=== PATIENT | female | born 1945 | race African-American/Black ===

== ENCOUNTER 2017-02-18 08:45 | Outpatient (RCR) | payer MEDICARE ==
[~2017-02-18 08:45] MED LIST: ACTOS30 MG PO; AMARYL 2MG T2 MG/TAB PO; BENAZEPRIL20 MG PO; FISH OIL 1000MG1 CAP PO; GLUCOPHAGE1000 MG PO; LEVOTHYROXINE0.1 MG PO; LIPITOR 10MG10 MG PO; ZOLOFT 100MG100 MG PO
== END 2017-04-12 ==
LOC: MKS.ESL.PT
DX: S76.811A Strain of other specified muscles, fascia and tendons at thigh level, right thigh, initial encounter (principal); M54.5 Low back pain

== ENCOUNTER → 2018-12-06 | Outpatient (CLI) | payer MEDICARE | LOC: MC.RAD 12:57 | DX: Z12.31 Encounter for screening mammogram for malignant neoplasm of breast (principal) ==

== ENCOUNTER 2020-09-21 10:22 | Day surgery (SDC) | payer MEDICARE ==
[~2020-09-21] VITALS: Ht 182.9 cm; Wt 86.1 kg
[2020-09-21 11:31] VITALS: BP 115/54; PULSE 62; TEMP 96.7
[2020-09-21] MEDS ORDERED: JARDIANCE10 PO (11:41)
[2020-09-21] MEDS ORDERED: LOTENSIN20 MG PO (11:42)
[2020-09-21] MEDS ORDERED: RESTORIL 1515 MG/CAP PO (11:42)
[2020-09-21] MEDS ORDERED: MOBIC15 MG PO (11:42)
[2020-09-21] MEDS ORDERED: MELATONIN5 M1 PO (11:43)
[2020-09-21 12:20] VITALS: BP 123/65; PULSE 62; TEMP 96.5
[2020-09-21 12:30] VITALS: BP 136/67; PULSE 61
[2020-09-21 12:45] VITALS: BP 137/100; PULSE 63
--- NOTE | 2020-09-21 13:07 | NUR ---
1220 Pt returns from endo procedure. Pt ambulates from cart to recliner with RN assist. Pt alert and oriented. Monitors on and alarms set. Call light within reach. Report received from STEPHIE Torres. Pt denies pain and nausea. Pt requests juice and muffin. 1230 Pt taking food and drink well. No complaints voiced. 1300 Discharge instructions given to pt and . All questions answered to their satisfaction. Handed to pt are a thank you card and discharge information. 1307 Pt transferred out of hospital via wheelchair and STEPHIE Price assist, to private vehicle driven by .
== END 2020-09-21 13:10 | disposition home or self-care (01) ==
LOC: SDCO 10:22
DX: Z12.11 Encounter for screening for malignant neoplasm of colon (principal); K57.30 Diverticulosis of large intestine without perforation or abscess without bleeding; E11.9 Type 2 diabetes mellitus without complications; E07.9 Disorder of thyroid, unspecified; M54.5 Low back pain; I10 Essential (primary) hypertension; F17.210 Nicotine dependence, cigarettes, uncomplicated; Z20.822 Contact with and (suspected) exposure to COVID-19; Z86.010 Personal history of colon polyps
CPT/HCPCS: J2704; J7030

== ENCOUNTER → 2020-11-23 | Outpatient (CLI) | payer MEDICARE ==
[~2020-11-23] MED LIST changes: +JARDIANCE10 PO; +LOTENSIN20 MG PO; +MELATONIN5 M1 PO; +MOBIC15 MG PO; +RESTORIL 1515 MG/CAP PO
== END ==
LOC: MC.RAD 09:45
DX: Z12.31 Encounter for screening mammogram for malignant neoplasm of breast (principal)

== ENCOUNTER 2021-01-30 15:30 | Observation (INO) | payer MEDICARE ==
[~2021-01-30] VITALS: Ht 182.9 cm; Wt 81.7 kg
[2021-01-30 16:06] LABS: BASO % 0.6 % (0.0-2.0); EOS # 0.2 K/mm3 (0.0-0.7); EOS % 3.2 % (0.0-4.0); GRAN # 2.8 K/mm3 (1.4-6.5); GRAN % 44.4 % (42.2-75.2); HEMATOCRIT 37.6 % (37.0-47.0); HEMOGLOBIN 11.5 g/dl (12.5-16.0); LYMPH # 2.7 K/mm3 (1.2-3.4); LYMPH % 42.4 % (20.0-51.0); MEAN CELL VOLUME 77 fl (80.0-100.0); MEAN CORPUSCULAR HEMOGLOBIN 24 pg (27-31); MEAN CORPUSCULAR HGB CONC 31 g/dl (33.0-37.0); MEAN PLATELET VOLUME 11.2 fl (7.4-10.4); MONO # 0.6 K/mm3 (0.1-0.6); MONO % 9.2 % (1.7-9.3); PLATELET COUNT 165 K/mm3 (130-400); RED BLOOD COUNT 4.89 M/mm3 (4.10-5.30); REDCELL DISTRIBUTION WIDTH-CV 17.3 % (11.5-14.5)
[2021-01-30 16:16] LABS: PROTHROMBIN TIME 10.8 SECONDS (9.7-12.8)
[2021-01-30 16:20] LABS: BILIRUBIN,TOTAL 0.4 mg/dL (0.2-1.2); CALCIUM 9.4 mg/dL (8.4-10.2); CREATININE, serum 1.07 mg/dL (0.57-1.11); POTASSIUM 4.5 mmol/L (3.5-4.5); TOTAL PROTEIN 7.5 gm/dL (6.2-8.1)
[2021-01-30 17:12] LABS: COLLECTION METHOD IN
[2021-01-30 17:18] LABS: MUCOUS Present (NOT PRESENT); PH 5 (5-8); SQUAMOUS EPITHELIAL 0-2 /hpf (0-10); URINE APPEARANCE Clear (CLEAR/HAZY); URINE BACTERIA None Seen /hpf (NONE SEEN); URINE BILIRUBIN Negative (NEGATIVE); URINE BLOOD 1+ (NEGATIVE); URINE COLOR Yellow (YELLOW); URINE GLUCOSE 3+ (NEGATIVE); URINE KETONE Negative (NEGATIVE); URINE LEUKOCYTE ESTERASE Negative (NEGATIVE); URINE NITRATE Negative (NEGATIVE); URINE PROTEIN(semi-quant) Negative (NEGATIVE); URINE RBC 0-2 /hpf (0-2); URINE UROBILINOGEN Negative (NEGATIVE)
[2021-01-30 17:22] LABS: ALBUMIN 4.2 gm/dL (3.4-4.8)
--- NOTE | 2021-01-30 21:48 | NUR ---
PT ARRIVES TO MEDICAL FLOOR AT ABOUT 2030 VIA WHEELCHAIR TO ROOM 353. PT A/OX4, RIGHT SIDE WEAKNESS TO RIGHT ARM AND RLE NOTED. PT HAS WEAK GAIT. LIMBS ARE FUNCTIONAL AND LEFT SIDE HAS NORMAL STRENGTH. TEASELER WNL. NO FACIAL ASSYMETRY NOTED. VSS. 02 ROOM AIR. PT DENIES N,V,D, PAIN, PARETHESIA. ASSESMENT COMPLETE. MED REC COMPLETE. PT ORIENTED TO ROOM/FLOOR AND HOSPITAL POLICY. DAUGHTER JOAN AND PT UPDATED ON POC. VERBALIZES UNDERSTANDING. PT INSTRUCTED TO USE CALL LIGHT TO AMBULATE. PT CONFIRMS. ALL NEEDS MET AT THIS TIME. CALL LIGHT WITHIN REACH. PT IN YELLOW GOWN AND SLIPPERS.
[2021-01-30 23:32] VITALS: BP 101/88; PULSE 71; TEMP 98.8
[2021-01-31 03:25] VITALS: BP 123/51; PULSE 64; TEMP 97.4
--- NOTE | 2021-01-31 05:12 | NUR ---
PT REGAINING MOBILITY AND STENGTH. UNSTEADY GAIT REMAINS. N/S INFUSING AT 125CC/HR TO RAC. I&O NOTED AND RECORDED. TELE MONITOR ON. ALL NEEDS MET THIS NIGHT. CALL LIGHT WITHIN REACH.
[2021-01-31 07:52] VITALS: BP 118/65; PULSE 69; TEMP 97.9
--- NOTE | 2021-01-31 08:26 | NUR ---
Patient laying in bed upon entering the room. Shift and neuro assessment completed. Breakfast was ordered for the patient. Patient does not have any complaints or concerns at this time. Call light is w/in reach.
[2021-01-31 12:23] VITALS: BP 146/60; PULSE 62; TEMP 98.3
--- NOTE | 2021-01-31 12:48 | NUR ---
Initial visit; Patient thanked Director Human Services for looking in on her and keeping her in Director Human Services's prayers. Patient was using the telephone.
--- NOTE | 2021-01-31 13:47 | NUR ---
SW met with patient to discuss discharge plan. Patient reports that she lives at home alone in [place]. Prior to this admission, the patient reports to being fully independent with her activities of daily living and does not utilize any DME to assist with mobility. Patient reports to having a cane that her brother "made" her that she is planning to use at home. Patient reports to having no oxygen needs at home. Patient believes that she has a DPOA-HC on file with her PCP. Patient does have 1 child named Dorys ([phone]). Spoke at length about making a referral to [facility] for intense rehab vs going home with HH. Patient feels like going to [facility] would help her more in the long run and would like to go there if her insurance approves it. Referral made to Mayra in [facility]. Discharge plan: [facility] reviewing.
[2021-01-31 15:47] VITALS: BP 143/59; PULSE 67; TEMP 97.9
--- NOTE | 2021-01-31 15:57 | NUR ---
[facility] accepts and can take the patient on Thursday 02/01.
[2021-01-31] MEDS ORDERED: LIPITOR 40MG TA40 MG PO (16:22)
[2021-01-31] MEDS ORDERED: ASPIRIN 81M81 MG/TA2 PO (16:22)
--- NOTE | 2021-01-31 17:48 | NUR ---
Patient has done well today, was hoping to discharge, but plan is to discharge tomorrow. Patient showered by OT and did well.
[2021-01-31 20:32] VITALS: BP 143/71; PULSE 70; TEMP 98
[2021-01-31 23:49] VITALS: BP 119/52; PULSE 60; TEMP 98
[2021-02-01 04:26] VITALS: BP 124/58; PULSE 65; TEMP 98.3
--- NOTE | 2021-02-01 05:41 | NUR ---
PT HAD UNEVENTFUL NIGHT THIS SHIFT, PT SSI UPDATED AND GLUCOSE CHECK UPDATED TO [facility]. NO CLINICAL CHANGES OVER NIGHT. R SIDED WEAKNESS REMAINS, PT HAS NOT YET GAINED FULL MOBILITY. ALL NEESD MET. CALL LIGHT WITHIN REACH.
[2021-02-01 08:41] VITALS: BP 105/61; PULSE 62; TEMP 98.2
--- NOTE | 2021-02-01 09:52 | NUR ---
Assessment completed, alert/oriented, vital signs stable, denies pain or discomfort, right arm weakness improved and patient has good strenthg and ROM , no new or worsening neuro deficits noted, heart RRR, distal pulses are palapble, lungs CTA/ no resp.difficulty noted, she is sitting up eating brekfast, meds given, plans for D/C to [facility] today
--- NOTE | 2021-02-01 11:48 | NUR ---
Patient is discharging and going to inpatient rehab, I ahchrissy called reprot to recieving nurse STEPHIE Tuttle, I transferred patient to room 340 via wheelchair
[2021-02-01] MEDS ORDERED: PLAVIX 75MG TAB75 MG PO (13:41)
== END 2021-02-01 12:00 ==
LOC: COL.ER 15:30 → MEDICAL 17:25
PROVIDERS: Student in an Organized Health Care Education/Training Program; ADMIT Internal Medicine
DX: I63.9 Cerebral infarction, unspecified (principal); I25.10 Atherosclerotic heart disease of native coronary artery without angina pectoris; E78.5 Hyperlipidemia, unspecified; I10 Essential (primary) hypertension; E11.9 Type 2 diabetes mellitus without complications; Z87.891 Personal history of nicotine dependence; Z86.718 Personal history of other venous thrombosis and embolism
CPT/HCPCS: 99232-AI; A9585; G0378; J1815; J7030; Q9967

== ENCOUNTER 2021-02-01 08:27 | Inpatient (IN) | payer MEDICARE ==
[~2021-02-01] VITALS: Ht 182.9 cm; Wt 80.5 kg
[~2021-02-01 08:27] MED LIST changes: +ASPIRIN 81M81 MG/TA2 PO; +LIPITOR 40MG TA40 MG PO
--- NOTE | 2021-02-01 12:46 | NUR ---
PT ARRIVED TO ROOM 340 VIA WHEELCHAIR ACCOMPANIED BY NEHEMIAS COLÓN. PT A&O, TRANSFERRED TO BED WITH MINIMAL EFFORT. SHAMIR EQUAL OPPORTUNITY SPECIALIST EQUAL. SPEECH CLEAR. PT WANTING A SHOWER UPON ARRIVAL, OT NOTIFIED.
[2021-02-01] MEDS ORDERED: PLAVIX 75MG TAB75 MG PO (13:41)
[2021-02-01 16:49] VITALS: BP 129/65; PULSE 68; TEMP 98.1
[2021-02-01 17:51] VITALS: BP 129/65; PULSE 68; TEMP 98.1
--- NOTE | 2021-02-01 19:15 | NUR ---
RECEIVED CHANGE OF SHIFT REPORT FROM DAY SHIFT RN.
--- NOTE | 2021-02-01 19:44 | NUR ---
DENIES CHEST PAIN/SOA AT THIS TIME. REPORTS SOME TINGLING TO TIPS OF RIGHT HAND INDEX/THUMB FINGERS. SPEECH CLEAR WITH NO FACIAL DROOPING. BUE MOVEMENT EQUAL WITH EQUAL MOVEMENT OF BLE REPORTED BY PATIENT. REPORTS STILL HAS SOME DIFFICULTY WITH WORD FINDING IN CONVERSATION WITH NURSING STAFF.
[2021-02-02 03:18] VITALS: BP 118/63; PULSE 90; TEMP 98.2
--- NOTE | 2021-02-02 06:51 | NUR ---
CHANGE OF SHIFT REPORT GIVEN TO DAY SHIFT RNELDON
--- NOTE | 2021-02-02 08:44 | NUR ---
Assessment completed, alert/oriented, vital signs stable, denies pain or discomfort, heart RRR/distal pulses are palapble, lungs CTA/no resp.difficulty, blood sugars are controlled, right sided weakness minimal / does have some unsteady gait at times, no new or worsenting neuro deficits noted, she has taken her morning medications, she is sitting up eating breakfast at this time
[2021-02-02 13:21] VITALS: BP 125/58; PULSE 60; TEMP 97.8
--- NOTE | 2021-02-02 19:02 | NUR ---
RECEIVED CHANGE OF SHIFT REPORT FROM DAY SHIFT RN.
--- NOTE | 2021-02-03 02:18 | NUR ---
PATIENT SLEEPING, DOES NOT WAKE WHEN NURSING ENTER ROOM ON ROUNDS. BED ALARM ON WITH CALL LIGHT WITHIN REACH.
[2021-02-03 04:58] VITALS: BP 130/60; PULSE 64; TEMP 97.8
--- NOTE | 2021-02-03 07:06 | NUR ---
CHANGE OF SHIFT REPORT GIVEN TO DAY SHIFT KATIE CARD.
[2021-02-03 07:07] LABS: BASO % 0.7 % (0.0-2.0); EOS # 0.3 K/mm3 (0.0-0.7); EOS % 5.6 % (0.0-4.0); GRAN % 34.4 % (42.2-75.2); LYMPH # 2.8 K/mm3 (1.2-3.4); LYMPH % 48.4 % (20.0-51.0); MEAN CELL VOLUME 78 fl (80.0-100.0); MEAN CORPUSCULAR HEMOGLOBIN 24 pg (27-31); MEAN CORPUSCULAR HGB CONC 31 g/dl (33.0-37.0); MEAN PLATELET VOLUME 11.3 fl (7.4-10.4); MONO # 0.6 K/mm3 (0.1-0.6); MONO % 10.6 % (1.7-9.3); PLATELET COUNT 168 K/mm3 (130-400); RED BLOOD COUNT 4.52 M/mm3 (4.10-5.30); REDCELL DISTRIBUTION WIDTH-CV 18.2 % (11.5-14.5)
[2021-02-03 07:22] LABS: ALBUMIN 3.5 gm/dL (3.4-4.8); CALCIUM 9.2 mg/dL (8.4-10.2); CREATININE, serum 0.91 mg/dL (0.57-1.11); MAGNESIUM 1.6 mg/dL (1.6-2.6); PHOSPHOROUS 3.9 mg/dL (2.3-4.7); POTASSIUM 4.2 mmol/L (3.5-4.5)
[2021-02-03 07:23] LABS: HEMATOCRIT 35.4 % (37.0-47.0)
--- NOTE | 2021-02-03 10:15 | NUR ---
Patient working with therapy. She had her eggs for breakfast. denies pain. Will monitor.
--- NOTE | 2021-02-03 12:50 | NUR ---
Patient stand by assist to the bathroom. Tolerated lunch. minimal needs. Will monitor.
--- NOTE | 2021-02-03 15:10 | NUR ---
Patient sister at bedside. Patient stand by assist to the bathroom. No other needs at this time.
--- NOTE | 2021-02-03 17:07 | NUR ---
Patient facetiming daughter. crackers & peanut butter provided per request. No other needs at this time
[2021-02-03 17:31] VITALS: BP 142/63; PULSE 60; TEMP 97.5
--- NOTE | 2021-02-03 19:15 | NUR ---
Report to Sheila. Patient finish dinner.
--- NOTE | 2021-02-03 20:22 | NUR ---
PT RESTING IN BED. A&OX4. MILD EXPRESSIVE APHASIA NOTED. RT SIDED WEAKNESS. PT RELATES FEEL SHE IS MUCH BEETER AND STRONGER THAN EVEN YESTERDAY.
[2021-02-04 05:01] VITALS: BP 102/78; PULSE 67; TEMP 97.9
[2021-02-04 06:38] LABS: BASO % 0.7 % (0.0-2.0); EOS # 0.3 K/mm3 (0.0-0.7); EOS % 5.4 % (0.0-4.0); GRAN # 2.3 K/mm3 (1.4-6.5); GRAN % 38.1 % (42.2-75.2); HEMOGLOBIN 11.2 g/dl (12.5-16.0); LYMPH # 2.7 K/mm3 (1.2-3.4); LYMPH % 45.6 % (20.0-51.0); MEAN CORPUSCULAR HEMOGLOBIN 28 pg (27-31); MEAN CORPUSCULAR HGB CONC 33 g/dl (33.0-37.0); MEAN PLATELET VOLUME 11.4 fl (7.4-10.4); MONO # 0.6 K/mm3 (0.1-0.6); PLATELET COUNT 161 K/mm3 (130-400); RED BLOOD COUNT 4.08 M/mm3 (4.10-5.30); REDCELL DISTRIBUTION WIDTH-CV 20.8 % (11.5-14.5)
--- NOTE | 2021-02-04 06:46 | NUR ---
shift report received from STEPHIE Sosa
[2021-02-04 06:54] LABS: HEMATOCRIT 33.9 % (37.0-47.0); MEAN CELL VOLUME 83 fl (80.0-100.0)
[2021-02-04 07:07] LABS: ALBUMIN 3.7 gm/dL (3.4-4.8); CALCIUM 9.2 mg/dL (8.4-10.2); CREATININE, serum 0.94 mg/dL (0.57-1.11); MAGNESIUM 1.6 mg/dL (1.6-2.6); PHOSPHOROUS 3.8 mg/dL (2.3-4.7); POTASSIUM 4.4 mmol/L (3.5-4.5)
--- NOTE | 2021-02-04 07:20 | NUR ---
awakened and assisted with sitting up in bed for breakfast
--- NOTE | 2021-02-04 08:39 | NUR ---
occupational therapy in and working with patient
--- NOTE | 2021-02-04 09:59 | NUR ---
resting in bed, full assessment completed, see interventions for further info
--- NOTE | 2021-02-04 10:29 | NUR ---
speech therapy working with patient
--- NOTE | 2021-02-04 13:10 | NUR ---
bedside shift report given to STEPHIE Romero
[2021-02-04 18:00] VITALS: BP 139/66; PULSE 64; TEMP 97.6
--- NOTE | 2021-02-04 20:48 | NUR ---
PT UP TO BR. HAD ANOTHER LOOSE STOOL. PT FEELS ITS FROM GLUCERNA. REFUSES GLUCERNA TONIGHT. PT SL FORGETFUL AND HAS MILD EXPRESSIVE APHASIA. RT SIDED WEAKNESS NOTED. NEEDS STEADYING AT TIMES. CALL LLIGHT IN REACH. BED ALARM SET.
[2021-02-05 05:31] VITALS: BP 132/50; PULSE 68; TEMP 97.2
--- NOTE | 2021-02-05 06:56 | NUR ---
bedside shift report received from STEPHIE Sosa
[2021-02-05 07:35] LABS: BASO % 0.5 % (0.0-2.0); EOS # 0.3 K/mm3 (0.0-0.7); EOS % 6.2 % (0.0-4.0); GRAN # 2.1 K/mm3 (1.4-6.5); GRAN % 37.6 % (42.2-75.2); HEMATOCRIT 36.6 % (37.0-47.0); HEMOGLOBIN 11.3 g/dl (12.5-16.0); LYMPH # 2.4 K/mm3 (1.2-3.4); LYMPH % 43.5 % (20.0-51.0); MEAN CELL VOLUME 76 fl (80.0-100.0); MEAN CORPUSCULAR HEMOGLOBIN 23 pg (27-31); MEAN CORPUSCULAR HGB CONC 31 g/dl (33.0-37.0); MEAN PLATELET VOLUME 11.6 fl (7.4-10.4); MONO # 0.7 K/mm3 (0.1-0.6); MONO % 11.8 % (1.7-9.3); PLATELET COUNT 169 K/mm3 (130-400); RED BLOOD COUNT 4.83 M/mm3 (4.10-5.30); REDCELL DISTRIBUTION WIDTH-CV 17.3 % (11.5-14.5)
[2021-02-05 07:49] LABS: ALBUMIN 3.7 gm/dL (3.4-4.8); CALCIUM 9.2 mg/dL (8.4-10.2); CREATININE, serum 0.85 mg/dL (0.57-1.11); MAGNESIUM 1.6 mg/dL (1.6-2.6); PHOSPHOROUS 3.6 mg/dL (2.3-4.7); POTASSIUM 4.5 mmol/L (3.5-4.5)
--- NOTE | 2021-02-05 09:17 | NUR ---
speech therapy in to work with patient
--- NOTE | 2021-02-05 10:44 | NUR ---
out of room and working with therapy
--- NOTE | 2021-02-05 12:01 | NUR ---
returned from therapy and resting in recliner, denies needs
--- NOTE | 2021-02-05 13:33 | NUR ---
Admission QIM scores were reviewed by the team. Code of 5 chosen for eating was determined by team discussion to be the most usual performance for this patient during the assessment period. Code of 4 chosen for oral hygiene was determined by team discussion to be the most usual performance for this patient during the assessment period. Code of 4 chosen for toilet hygiene was determined by team discussion to be the most usual performance for this patient during the assessment period. Code of 4 chosen for toileting transfers was determined by team discussion to be the most usual performance for this patient during the assessment period. Code of 10 chosen for upper body dressing was determined by team discussion to be the most usual performance before interventions for this patient during the assessment period. Code of 10 chosen for lower body dressing was determined by team discussion to be the most usual performance for this patient during the assessment period.--Mayra Valdivia, PD
--- NOTE | 2021-02-05 14:01 | NUR ---
Completed SW assessment w/ pt. She is alert & oriented & able to communicate her needs & wants to others. She has her own lower teeth but wears upper dentures & does not wear glasses . She lives alone but has support from her daughter & sister. She lives in an apartment on 2nd floor & has about 15 steps w/ handrail on left (which are inside) to get to her apartment. The bathroom has a walk-in shower w/ curtain & grab bars. The toilet is standard height. Pt reports walking w/out a device & was independent w/ her self care. She also reports doing the cooking, housekeeping, laundry, shopping, medication management, & finance management. She doesn t have any equipment. Pharmacy: Uses [id number] & reports issues/concerns w/ affording her medication, Jardiance. Currently receives samples from Dr. Cooper. PCP: Dr. Cooper DPOA: Pt does have DPOA paperwork that designates her sister, Brenda, as her associate sales representative & copy is in EMR. Pt had no questions/concerns at this time about her rehab stay. SW will continue to follow to provide support & assist w/ d/c planning.
--- NOTE | 2021-02-05 14:32 | NUR ---
back in room after therapy, denies needs
--- NOTE | 2021-02-05 16:21 | NUR ---
appears to be sleeping, in bed with lights off eyes closed, resp quiet and easy
--- NOTE | 2021-02-05 17:40 | NUR ---
sitting up in bed eating supper and talking on phone, denies needs
[2021-02-05 18:01] VITALS: BP 133/65; PULSE 63; TEMP 98.3
--- NOTE | 2021-02-05 18:39 | NUR ---
RECEIVED CHANGE OF SHIFT REPORT FROM DAY SHIFT RN.
--- NOTE | 2021-02-05 18:40 | NUR ---
shift report given to STEPHIE Dunaway
--- NOTE | 2021-02-06 02:50 | NUR ---
PATIENT SLEEPING, DOES NOT WAKE WHEN NURSING ENTERS ROOM ON ROUNDS. BREATHING NONLABORED AND EVEN. BED ALARM ON WITH CALL LIGHT WITHIN REACH.
[2021-02-06 05:12] VITALS: BP 142/66; PULSE 69; TEMP 98.1
[2021-02-06 06:29] LABS: BASO % 0.6 % (0.0-2.0); EOS # 0.4 K/mm3 (0.0-0.7); EOS % 6.5 % (0.0-4.0); GRAN # 1.9 K/mm3 (1.4-6.5); HEMOGLOBIN 11.1 g/dl (12.5-16.0); LYMPH # 3.2 K/mm3 (1.2-3.4); LYMPH % 50.6 % (20.0-51.0); MEAN CORPUSCULAR HEMOGLOBIN 28 pg (27-31); MEAN CORPUSCULAR HGB CONC 34 g/dl (33.0-37.0); MEAN PLATELET VOLUME 11.1 fl (7.4-10.4); MONO # 0.7 K/mm3 (0.1-0.6); PLATELET COUNT 159 K/mm3 (130-400); REDCELL DISTRIBUTION WIDTH-CV 19.9 % (11.5-14.5)
[2021-02-06 06:31] LABS: MEAN CELL VOLUME 83 fl (80.0-100.0)
[2021-02-06 06:46] LABS: ALBUMIN 3.6 gm/dL (3.4-4.8); CALCIUM 9.3 mg/dL (8.4-10.2); CREATININE, serum 0.89 mg/dL (0.57-1.11); MAGNESIUM 1.6 mg/dL (1.6-2.6); PHOSPHOROUS 3.9 mg/dL (2.3-4.7); POTASSIUM 4.6 mmol/L (3.5-4.5)
--- NOTE | 2021-02-06 07:00 | NUR ---
Report received from Simi CARD. Patient is sleeping in bed. Call light and bedside table are within reach. Will continue to monitor patient throughout shift.
--- NOTE | 2021-02-06 07:13 | NUR ---
CHANGE OF SHIFT REPORT GIVEN TO DAY SHIFT JAVAN CARD.
--- NOTE | 2021-02-06 10:30 | NUR ---
Patient meeting conducted w/ pt & her sister, Brenda, & [id number]. Also present was the MD, PT, OT, & SW/him director. The team talked about how pt has been doing & any concerns regarding balance & coordination. Informed them of d/c for , 02/14/21, w/ recommendation for outpatient PT/OT. They were fine w/ the plan. Family asked questions which were answered by the team.
--- NOTE | 2021-02-06 12:00 | NUR ---
Patient was brought up by physical therapy because she thought her blood pressure was low. This nurse took her BP and she was 117/70 and her blood sugar was 88.
[2021-02-06 18:07] VITALS: BP 132/86; PULSE 72; TEMP 98.7
--- NOTE | 2021-02-06 19:00 | NUR ---
RECEIVED CHANGE OF SHIFT REPORT FROM DAY SHIFT RN. PATIENT RESTING IN BED WATCHING SPORTS, EXIT ALARM ON, CALL LIGHT WITHIN REACH. DENIES ANY COMPLAINTS OR NEEDS.
[2021-02-06 21:02] VITALS: BP 131/49; PULSE 61; TEMP 98.4
[2021-02-07 05:36] VITALS: BP 128/71; PULSE 59; TEMP 98.4
[2021-02-07 06:11] LABS: BASO % 0.6 % (0.0-2.0); EOS # 0.4 K/mm3 (0.0-0.7); EOS % 6.1 % (0.0-4.0); GRAN # 1.9 K/mm3 (1.4-6.5); GRAN % 30.4 % (42.2-75.2); LYMPH # 3.3 K/mm3 (1.2-3.4); LYMPH % 52.8 % (20.0-51.0); MEAN CORPUSCULAR HEMOGLOBIN 32 pg (27-31); MEAN CORPUSCULAR HGB CONC 36 g/dl (33.0-37.0); MEAN PLATELET VOLUME 11.6 fl (7.4-10.4); MONO # 0.6 K/mm3 (0.1-0.6); MONO % 9.9 % (1.7-9.3); PLATELET COUNT 160 K/mm3 (130-400); RED BLOOD COUNT 3.47 M/mm3 (4.10-5.30); REDCELL DISTRIBUTION WIDTH-CV 24.6 % (11.5-14.5)
[2021-02-07 06:18] LABS: HEMATOCRIT 30.8 % (37.0-47.0); MEAN CELL VOLUME 89 fl (80.0-100.0)
[2021-02-07 06:31] LABS: ALBUMIN 3.5 gm/dL (3.4-4.8); CREATININE, serum 0.87 mg/dL (0.57-1.11); MAGNESIUM 1.6 mg/dL (1.6-2.6); PHOSPHOROUS 3.9 mg/dL (2.3-4.7); POTASSIUM 4.6 mmol/L (3.5-4.5)
--- NOTE | 2021-02-07 06:44 | NUR ---
shift report received from STEPHIE Dunaway
--- NOTE | 2021-02-07 07:00 | NUR ---
CHANGE OF SHIFT REPORT GIVEN TO DAY SHIFT ELI CARD.
--- NOTE | 2021-02-07 07:25 | NUR ---
awake and sitting up getting ready to eat breakfast, full assessment completed, see interventions for further info, denies needs at this time
--- NOTE | 2021-02-07 09:00 | NUR ---
speech therapy in to work with patient
--- NOTE | 2021-02-07 12:15 | NUR ---
has been working with therapy through the morning, has had lunch and tolerated well
--- NOTE | 2021-02-07 15:25 | NUR ---
awake and looking at TV
--- NOTE | 2021-02-07 17:17 | NUR ---
sitting up in bed eating supper
--- NOTE | 2021-02-07 17:42 | NUR ---
report given to STEPHIE Dunaway
[2021-02-07 18:28] VITALS: BP 112/55; PULSE 69; TEMP 97.6
--- NOTE | 2021-02-07 19:00 | NUR ---
RECEIVED CHANGE OF SHIFT REPORT FROM DAY SHIFT RN.
[2021-02-08 06:12] VITALS: BP 119/60; PULSE 73; TEMP 97.8
--- NOTE | 2021-02-08 06:59 | NUR ---
Report received from STEPHIE Belcher. Patient is sleeping in bed. Call light and bedside table are within reach. Will continue to monitor patient throughout shift.
--- NOTE | 2021-02-08 07:06 | NUR ---
CHANGE OF SHIFT REPORT GIVEN TO DAY SHIFT JAVAN CARD.
--- NOTE | 2021-02-08 11:17 | NUR ---
Patient is now MOD-I in room.
[2021-02-08 16:40] VITALS: BP 94/68; PULSE 70; TEMP 97.8
[2021-02-09 05:46] VITALS: BP 130/65; PULSE 70; TEMP 97.4
--- NOTE | 2021-02-09 06:46 | NUR ---
Patient is resting comfortably in bed and talking on the phone. Call light and bedside table are within reach. Will continue to monitor throughout shift.
[2021-02-09 17:27] VITALS: BP 124/68; PULSE 67; TEMP 97.3
[2021-02-10 05:22] VITALS: BP 127/68; PULSE 58; TEMP 97.7
--- NOTE | 2021-02-10 05:23 | NUR ---
PT INDEPENDENT WITH AMBULATION. PT TINY PAIN. NEURO CHECKS WNL.
--- NOTE | 2021-02-10 06:50 | NUR ---
awake and sitting on side of bed, will have her on fall precautions until can verify she is Mod I
--- NOTE | 2021-02-10 08:08 | NUR ---
appears to be sleeping, in bed with lights off, eyes closed, resp quiet and easy,
--- NOTE | 2021-02-10 08:50 | NUR ---
awake now and ready for breakfast, full assessment completed, see interventions for further info,
--- NOTE | 2021-02-10 11:30 | NUR ---
awake and talking on the phone
--- NOTE | 2021-02-10 14:00 | NUR ---
in bed watching TV, snack given
[2021-02-10 16:09] VITALS: BP 125/58; PULSE 65; TEMP 97.5
--- NOTE | 2021-02-10 17:15 | NUR ---
sitting up in bed eating supper and watching TV
--- NOTE | 2021-02-10 18:33 | NUR ---
shift report given to STEPHIE Dunaway
--- NOTE | 2021-02-10 19:16 | NUR ---
RECEIVED CHANGE OF SHIFT REPORT FROM DAY SHIFT RN.
[2021-02-11 04:56] VITALS: BP 124/58; PULSE 62; TEMP 97.7
--- NOTE | 2021-02-11 07:39 | NUR ---
Pt resting in bed upon entry, she is alert and oriented. Pt asking about plan for today and tomorrow. POC discussed as well as therapies and possible discharge. Pt denies any pain. No N/V. [employer] Manager strengths equal bilaterally. Pt has no further needs at this time. Call light within reach.
--- NOTE | 2021-02-11 07:40 | NUR ---
CHANGE OF SHIFT REPORT GIVEN TO DAY SHIFT RNDESIREE.
[2021-02-11 16:23] VITALS: BP 147/53; PULSE 73
--- NOTE | 2021-02-11 17:49 | NUR ---
Pt mod I in room, she denied any pain through the day. Pt did not want to walk this afternoon when offered. Sitting up in bed eating dinner at this time. Call light within reach.
--- NOTE | 2021-02-11 19:30 | NUR ---
Report received, assumed care for casino shift manager. Assessment complete. VS stable. A&Ox4. Denies pain/nausea/shortness of breath. Up in room MOD I-with cane-tolerating well. Plan of care discussed for this shift to include meds/calling for questions/concerns. Verbalizes understanding. Plan for DC tomorrow. Denies current needs. Call light in reach. Will monitor.
--- NOTE | 2021-02-12 00:30 | NUR ---
Resting eyes closed. no s/s of pain or discomfort noted.
[2021-02-12 05:06] VITALS: BP 127/60; PULSE 68; TEMP 98
--- NOTE | 2021-02-12 05:20 | NUR ---
Rested well this shift with no c/o pain/nausea/shortness of breath. VS remained stable. Denied needs/questions/concerns. Call light in reach. Will monitor.
--- NOTE | 2021-02-12 07:03 | NUR ---
Report received from STEPHIE Razo. Patient is up and sitting on the side of her bed. Call light and bedside table are within reach. Will continue to monitor patient throughout shift.
[2021-02-12] MEDS ORDERED: PLAVIX 75MG TAB75 MG PO (09:07)
[2021-02-12] MEDS ORDERED: LIPITOR 40MG TA40 MG PO (09:07)
--- NOTE | 2021-02-12 10:39 | NUR ---
Patient discharging at 1100. Patient going home with out patient physical therapy and would like to be set up with [facility]) for therapy. Phone call made and spoke with Dagmar at the therapy center. Dagmar reports that when they get the orders, they will call the patient and schedule an appointment. Collaboration made with the patient's RN who will provide the above information to the patient when going over the discharge instructions. Patient's family arrives to the unit to pick the patient up.
--- NOTE | 2021-02-12 11:21 | NUR ---
Patient has been discharged from room 340 and all personal belongings have been cleared from the room to include cell phone and supervisor esters and emulsifiers. Patient health summary, discharge summary, and home meds have been printed and reviewed with patient. Belongings were gathered by patient. Patient transported via and seatbelted for ride to appointment in [place].
== END 2021-02-12 11:20 | disposition home or self-care (01) | DRG 57 ==
PROVIDERS: Internal Medicine; ADMIT Physical Medicine & Rehabilitation Sports Medicine
DX: I69.351 Hemiplegia and hemiparesis following cerebral infarction affecting right dominant side (principal); I65.23 Occlusion and stenosis of bilateral carotid arteries; I69.320 Aphasia following cerebral infarction; R26.89 Other abnormalities of gait and mobility; E78.5 Hyperlipidemia, unspecified; F32.A Depression, unspecified; I10 Essential (primary) hypertension; G47.00 Insomnia, unspecified; E11.9 Type 2 diabetes mellitus without complications; F17.210 Nicotine dependence, cigarettes, uncomplicated; Z60.2 Problems related to living alone; Z79.84 Long term (current) use of oral hypoglycemic drugs; Z79.899 Other long term (current) drug therapy; Z79.82 Long term (current) use of aspirin; Z73.6 Limitation of activities due to disability
CPT/HCPCS: 99222; 99231-AI; 99232-AI; J1815

== ENCOUNTER 2021-04-05 14:00 | Outpatient (RCR) | payer MEDICARE ==
[~2021-04-05 14:00] MED LIST changes: +PLAVIX 75MG TAB75 MG PO
== END 2021-04-08 | disposition home or self-care (01) ==
LOC: MKS.ESL.PT
DX: I69.30 Unspecified sequelae of cerebral infarction (principal)

== ENCOUNTER 2022-12-30 12:45 | Outpatient (RCR) | payer MEDICARE ==
[~2022-12-30 12:45] MED LIST changes: +ARIMIDEX1 MG PO; +ASPIRIN E.C. 8181 MG PO; +FISH OIL 500 M1 EAC1 PO; +GLUCOTROL XL2.5 MG PO; +GLUMETZA1000 MG PO; +JARDIANCE25 PO; +LIPITOR 80MG80 MG PO; +MEDROL 4MG DOSPA4 MG PO; +MELATONIN5 M1 SL; +MOTRIN 600600 MG/TAB PO; +NATURAL IRON65 MG PO; +NEURONTIN300 MG/CAP PO; +NORCO 325 MG-101 TAB PO; +NORCO 325 MG-51 TAB PO; +PROTONIX 40MG T40 MG PO; +VTAMINC250TA PO
== END 2023-01-08 | disposition home or self-care (01) ==
LOC: MKS.ESL.PT
DX: M48.062 Spinal stenosis, lumbar region with neurogenic claudication (principal); R29.898 Other symptoms and signs involving the musculoskeletal system

== ENCOUNTER 2023-01-15 08:35 | Outpatient (RCR) | payer MEDICARE | END 2023-02-08 | disposition home or self-care (01) | LOC: MKS.ESL.PT | DX: M48.062 Spinal stenosis, lumbar region with neurogenic claudication (principal); R29.898 Other symptoms and signs involving the musculoskeletal system ==

== ENCOUNTER 2023-05-06 13:30 | Outpatient (RCR) | payer MEDICARE, MEDICAID | END 2023-05-10 | disposition home or self-care (01) | LOC: MKS.ESL.PT | DX: M48.062 Spinal stenosis, lumbar region with neurogenic claudication (principal); R29.898 Other symptoms and signs involving the musculoskeletal system ==